=== PATIENT | male | born 1965 | race African-American/Black ===

== ENCOUNTER 2017-09-26 00:28 | Emergency (ER) | payer MEDICAID ==
[~2017-09-26] VITALS: Ht 182.9 cm; Wt 77.9 kg
[~2017-09-26 00:28] MED LIST: ACET-3161 PO; IBUP-2030 PO; NAPR-679 PO
[2017-09-26] MEDS ORDERED: PREDNISONE 20MG TABLET PO ONE (01:30)
[2017-09-26] MEDS ORDERED: IBUPROFEN 800MG TABLET PO ONE (01:30)
[2017-09-26 02:05] VITALS: BP 139/86
== END 2017-09-26 02:05 | disposition home or self-care (01) ==
LOC: ER 00:28
DX: S39.012A Strain of muscle, fascia and tendon of lower back, initial encounter (principal); F17.200 Nicotine dependence, unspecified, uncomplicated; X50.9XXA Other and unspecified overexertion or strenuous movements or postures, initial encounter; Y93.89 Activity, other specified; Y92.89 Other specified places as the place of occurrence of the external cause; Y99.8 Other external cause status
CPT/HCPCS: 99283; J7512

== ENCOUNTER 2023-02-27 16:19 | Inpatient (IN) | payer MEDICAID ==
[~2023-02-27] VITALS: Ht 182.9 cm; Wt 72.1 kg
[2023-02-27 16:53] LABS: BASOPHILS % 0.6 % (0.0-2.0); HEMATOCRIT. 46.3 % (42.0-52.0); LYMPHOCYTES % 19.9 % (20.0-50.0); MEAN CORPUSCULAR HEMOGLOBIN 30.8 pg (28.0-32.0); MEAN CORPUSCULAR VOLUME 89.1 fL (80.0-94.0); MEAN PLATELET VOLUME 7.9 fl (7.4-10.4); MONOCYTES % 8.5 % (2.0-8.0); PLATELET 318 x1000/uL (130-400); RED CELL DISTRIBUTION WIDTH 14.1 % (11.6-14.6)
[2023-02-27 16:56] LABS: CHLORIDE 109 mEq/L (98-107)
[2023-02-27] MEDS ORDERED: ONDANSETRON HCL 4MG/2ML INJ IV STA (17:09)
[2023-02-27] MEDS ORDERED: SODIUM CHLORIDE 0.9% 1,000 ML IV ONE (17:15)
[2023-02-27] MEDS ORDERED: METOCLOPRAMIDE HCL 10MG/2ML VIAL IV ONE (17:15)
[2023-02-27] MEDS ORDERED: KETOROLAC 30MG/ML VIAL IV ONE (17:15)
[2023-02-27] MEDS ORDERED: SUMATRIPTAN SUCCINATE 6MG/0.5ML VIAL SUBCUT ONE (18:00)
[2023-02-27] MEDS ORDERED: ONDANSETRON HCL 4MG/2ML INJ IV NR (21:15)
[2023-02-27] MEDS ORDERED: METOCLOPRAMIDE HCL 10MG/2ML VIAL IV NR (21:15)
[2023-02-27] MEDS ORDERED: KETOROLAC 30MG/ML VIAL IV NR (21:15)
[2023-02-27] MEDS ORDERED: SUMATRIPTAN SUCCINATE 6MG/0.5ML VIAL SUBCUT NR (21:15)
[2023-02-27] MEDS ORDERED: KETOROLAC 15MG/ML VIAL IV PRN (22:00)
[2023-02-27] MEDS ORDERED: GUAIFENESIN 200MG/10ML SUGAR FREE UDC PO PRN (22:00)
[2023-02-27] MEDS ORDERED: DOCUSATE SODIUM 100MG CAPSULE PO PRN (22:00)
[2023-02-27] MEDS ORDERED: CLONIDINE 0.1MG TABLET PO PRN (22:00)
[2023-02-27] MEDS ORDERED: DIPHENHYDRAMINE 50MG/ML VIAL IV PRN (22:00)
[2023-02-27] MEDS ORDERED: ACETAMINOPHEN 325MG TABLET PO PRN ×2 (22:00)
[2023-02-27] MEDS ORDERED: IPRATROPIUM/ALBUTEROL 0.5-3(2.5)MG/3ML NEB HHN PRN (22:00)
[2023-02-27] MEDS ORDERED: MAGNESIUM/ALUMINUM HYDROXIDE/SIMETHICONE 30ML UDC PO PRN (22:00)
[2023-02-27] MEDS: SODIUM CHLORIDE 0.9% 1,000 ML IV SCH (23:03)
[2023-02-27] MEDS: PANTOPRAZOLE SODIUM 40 MG/VIAL IV SCH (23:03)
[2023-02-28 00:24] LABS: CLARITY URINE CLEAR (CLEAR); COLOR URINE YELLOW (YELLOW); KETONES URINE 1+ (NEGATIVE); LEUKOCYTE ESTERASE URINE 2+ (NEGATIVE); NITRITE URINE NEGATIVE (NEGATIVE); OCCULT BLOOD URINE TRACE (NEGATIVE); PROTEIN URINE NEGATIVE (NEGATIVE); SPECIFIC GRAVITY URINE 1.017 (1.005-1.030)
[2023-02-28] MEDS: METOCLOPRAMIDE HCL 10MG/2ML VIAL IV SCH ×4 (01:35→17:21)
[2023-02-28 08:45] VITALS: BP 127/79; PULSE 66; RESP 19; TEMP 97.9
[2023-02-28] MEDS: ENOXAPARIN 40MG/0.4ML SYR SUBCUT SCH ×2 (08:59→09:00)
[2023-02-28] MEDS: PANTOPRAZOLE SODIUM 40 MG/VIAL IV SCH (08:59)
[2023-02-28 09:00] VITALS: BP 127/79; PULSE 66; RESP 19; TEMP 97.9
[2023-02-28] MEDS ORDERED: SUMATRIPTAN SUCCINATE 6MG/0.5ML VIAL SUBCUT SCH (09:00)
[2023-02-28] MEDS ORDERED: BUTALBITAL/ACETAMINOPHEN/CAFFEINE 50/325/40MG TABLET PO PRN (11:00)
[2023-02-28 11:01] LABS: BASOPHILS % 0.4 % (0.0-2.0); EOSINOPHILS % 2.1 % (0.0-5.0); HEMATOCRIT. 40.8 % (42.0-52.0); HEMOGLOBIN. 14.2 g/dL (14.0-18.0); LYMPHOCYTES % 25.8 % (20.0-50.0); MEAN CORPUSCULAR HEMOGLOBIN 30.6 pg (28.0-32.0); MEAN PLATELET VOLUME 7.8 fl (7.4-10.4); MONOCYTES % 13.2 % (2.0-8.0); NEUTROPHILS % 58.5 % (40.0-76.0); PLATELET 281 x1000/uL (130-400); RED BLOOD CELL COUNT 4.63 mill/uL (4.7-6.1); RED CELL DISTRIBUTION WIDTH 14.1 % (11.6-14.6)
[2023-02-28] MEDS ORDERED: CYCL10TA21 PO (11:07)
[2023-02-28 11:14] LABS: CHLORIDE 115 mEq/L (98-107)
[2023-02-28 11:24] LABS: CREATINE KINASE 64 IU/L (39-308)
[2023-02-28 12:00] VITALS: BP 104/60; PULSE 51; RESP 20; TEMP 98.7
[2023-02-28] MEDS: SODIUM CHLORIDE 0.9% 1,000 ML IV SCH (13:55)
[2023-02-28 16:00] VITALS: BP 121/51; PULSE 61; RESP 20; TEMP 98.9
[2023-02-28 20:00] VITALS: BP 112/65; PULSE 47; RESP 16; TEMP 98.2
[2023-03-01] VITALS: BP 106/57; PULSE 55; RESP 20; TEMP 97.8
[2023-03-01] MEDS: METOCLOPRAMIDE HCL 10MG/2ML VIAL IV SCH ×2 (00:38→06:00)
[2023-03-01 04:00] VITALS: BP 126/79; PULSE 57; RESP 18; TEMP 97.6
[2023-03-01] MEDS: SODIUM CHLORIDE 0.9% 1,000 ML IV SCH (06:16)
[2023-03-01 08:18] VITALS: BP 146/91; PULSE 65; RESP 18; TEMP 97.4
[2023-03-01] MEDS: PANTOPRAZOLE SODIUM 40 MG/VIAL IV SCH (08:28)
[2023-03-01] MEDS: ENOXAPARIN 40MG/0.4ML SYR SUBCUT SCH (08:28)
[2023-03-01 09:56] VITALS: BP 146/91; PULSE 65; TEMP 97.8; O2SAT 96
[2023-03-01 15:40] LABS: *AMPHETAMINES SCREEN URINE NEGATIVE (NEGATIVE); *BARBITURATES SCREEN URINE PRESUMTIVE POSITIVE (NEGATIVE); *BENZODIAZEPINES SCREEN URINE NEGATIVE (NEGATIVE); *COCAINE SCREEN URINE NEGATIVE (NEGATIVE); CANNABINOID URINE SCREEN PRESUMTIVE POSITIVE (NEGATIVE); METHADONE URINE SCREEN NEGATIVE (NEGATIVE); OPIATES URINE SCREEN NEGATIVE (NEGATIVE); PHENCYCLIDINE URINE SCREEN NEGATIVE (NEGATIVE)
== END 2023-03-01 10:15 | disposition home or self-care (01) | DRG 54 ==
LOC: ER 16:19 → MICUSO 19:56 → EDBEDREQ 20:12 → EDBEDREQTM 20:12 → 7WST 02-28 08:38
PROVIDERS: ADMIT Internal Medicine; ATTEND Internal Medicine
DX: G43.109 Migraine with aura, not intractable, without status migrainosus (principal); E80.6 Other disorders of bilirubin metabolism; H53.2 Diplopia; R73.9 Hyperglycemia, unspecified; R74.01 Elevation of levels of liver transaminase levels
CPT/HCPCS: 36415; 72170; 80053; 80076; 80305; 81003; 82550; 84484; 85025; 93005; 93970; 99285; C9113; J1650; J1885; J2405; J2765; J3030; J7030